=== PATIENT | female | born 1950 | race Caucasian/White ===

== ENCOUNTER 2022-07-10 20:40 | Emergency (ER) | payer OTHER ==
[~2022-07-10] VITALS: Ht 160 cm; Wt 53.7 kg
[~2022-07-10 20:40] MED LIST: HUMULIN N100 UNIT/1 SQ; LANTUS100 U/ML SC; ZESTRIL40 MG PO
[2022-07-10] MEDS ORDERED: CETIRIZINE10 MG PO (21:41)
[2022-07-10] MEDS ORDERED: CEFDINIR300 MG PO (21:41)
== END 2022-07-10 21:53 | disposition home or self-care (01) ==
LOC: ED 20:40
DX: H92.03 Otalgia, bilateral (principal); F17.200 Nicotine dependence, unspecified, uncomplicated; Z79.899 Other long term (current) drug therapy; Z88.0 Allergy status to penicillin